=== PATIENT | female | born 1960 | race Caucasian/White ===

== ENCOUNTER 2016-12-21 18:16 | Emergency (ER) | payer MEDICARE ==
[2016-12-21] MEDS ORDERED: IOPAMIDOL 300 (61%) 150 ML VIAL IV ONE (18:17)
[2016-12-21] MEDS ORDERED: ONDANSETRON 4 MG/2ML 2 ML VIAL ONE (19:20)
[2016-12-21] MEDS ORDERED: MORPHINE SULFATE 4 MG/ML SYRINGE ONE (19:21)
[2016-12-21 19:29] LABS: ABSOLUTE NEUTROPHIL COUNT 8.3 K/mm3 (1.8-7.7); BASO # 0.1 K/mm3 (0.0-0.2); BASO % 0.4 % (0.2-1.0); EOS # 0.2 (0.0-0.5); EOS % 1.3 % (0.9-2.9); HEMOGLOBIN 12.9 gm/l (12.0-16.0); IMM NEUT% 0.2 % (0-1); LYMPH # 2.5 (1.0-4.8); LYMPH % 20.8 % (15-45); MEAN CELL VOLUME 90.9 fl (81.0-99.0); MEAN CORPUSCULAR HEMOGLOBIN 29.3 pg (27.0-31.0); MEAN CORPUSCULAR HGB CONC 32.3 g/dl (33.0-37.0); MEAN PLATELET VOLUME 8.8 fl (7.4-10.4); MONO % 8.6 % (4-12); NEUT % 68.7 % (43-75); PLATELET COUNT 280 K/mm3 (130-400); RED CELL DISTRIBUTION WIDTH 12.1 % (11.5-14.5)
[2016-12-21 19:42] LABS: ALB/GLOB RATIO 1.6 (>1.0); ALBUMIN 4.1 gm/dL (3.5-5.7); CALCIUM 9.3 mg/dL (8.6-10.3); MAGNESIUM 2.1 mg/dL (1.9-2.7)
[2016-12-21] MEDS ORDERED: DICYCLOMINE HCL 10 MG/ML 2ML AMP IM ONE (19:45)
--- NOTE | 2016-12-21 20:02 | CT ---
Name: SHAWN KO Exam: CT abdomen pelvis with contrast Comparison: 04/26/2016 History: Lower abdominal pain and rectal bleeding Procedure: Helical CT using multidetector technique was applied to the abdomen and pelvis during intravenous administration of 125 cc Isovue-300. No oral contrast was given per ordering physician. An automated dose reduction technique was used to minimize patient radiation dose. Findings: CT abdomen (contrast enhanced): In the left lung base, there is a 4.7 mm noncalcified nodule abutting the pleura with no change from the prior. Heart is nonenlarged. There is no pericardial effusion. Posterior to the IVC, there is a 3 cm poorly marginated hypodensity with a small amount of centripetal enhancement. In retrospect, this is seen on noncontrast prior CT and hemangioma is favored. In the posterior segment of the right hepatic lobe, there is a second 1 cm poorly marginated vague hypodensity which is unchanged from the prior exam. Second hemangioma could have this appearance. Gallbladder is not distended. Pancreas, spleen, adrenal glands, IVC and portal vein are within normal limits. There is mild lobulation of the kidneys which may be scarring or persistent lobulation. Left renal vein is retroaortic. There is atherosclerosis of a normal caliber aorta. Stomach and small bowel are within normal limits. There is thickening of the colon at the splenic flexure with adjacent pericolonic stranding. There is no obstruction, perforation or abscess. There is no free air, suspicious free fluid or adenopathy. Regional skeleton is within normal limits. CT pelvis (contrast enhanced): Bladder is normal. Uterus and ovaries are absent. There is minimal sigmoid colon diverticulosis without current evidence for ventriculitis. Small bowel is unremarkable. The appendix is not identified. There is no pericecal stranding. There is no free air, free fluid or suspicious adenopathy. Impression: 1. Thickening of the colon centered at the splenic flexure. Colitis is favored. Currently, there is no perforation, obstruction or abscess. 2. Minimal sigmoid colon diverticulosis without current evidence for diverticulitis 3. Prior hysterectomy and oophorectomy. 4. Nonvisualization the appendix 5. 3 cm hepatic hemangioma. Smaller 1 cm hepatic hemangioma is suspected as well. Note: The above report was uploaded to [facility]'s electronic medical records system at 1958 hours.
[2016-12-21] MEDS ORDERED: METRONIDAZOLE 500 MG TABLET ONE (21:26)
[2016-12-21] MEDS ORDERED: CIPROFLOXACIN 500 MG TABLET ONE (21:26)
[2016-12-21 22:14] LABS: SPECIFIC GRAVITY 1.015 (1.001-1.030); URINE BILIRUBIN NEGATIVE (NEGATIVE); URINE BLOOD TRACE (NEGATIVE); URINE GLUCOSE (UA) NEGATIVE (NEGATIVE); URINE LEUKOCYTE ESTERASE NEGATIVE (NEGATIVE); URINE NITRITE NEGATIVE (NEGATIVE); URINE PROTEIN NEGATIVE (NEGATIVE); URINE UROBILINOGEN NORMAL (0-1 mg/dl)
[2016-12-21 22:15] LABS: URINE APPEARANCE SL CLOUDY; URINE COLOR YELLOW
[2016-12-21 22:16] LABS: URINE RBC 0-2 /hpf
[2016-12-21 22:17] LABS: URINE BACTERIA RARE; URINE WBC 0-2 /hpf
== END 2016-12-21 21:48 | disposition home or self-care (01) ==
LOC: ED 18:16
DX: K52.9 Noninfective gastroenteritis and colitis, unspecified (principal); J45.909 Unspecified asthma, uncomplicated; E89.0 Postprocedural hypothyroidism; I10 Essential (primary) hypertension; F17.210 Nicotine dependence, cigarettes, uncomplicated
CPT/HCPCS: 83690; 84703; 85025; 80053; 83735; 81001; 74177; 96375; 99284 ×2; 96372; 96374; A9270 ×2; J2270; J2405; Q9967